=== PATIENT | male | born 1960 | race Two or more races ===

== ENCOUNTER 2019-05-27 22:38 | Emergency (ER) | payer OTHER, SELFPAY ==
[~2019-05-27] VITALS: Ht 175.3 cm; Wt 72.4 kg
[2019-05-27 22:47] VITALS: BP 126/77
[2019-05-28] MEDS ORDERED: OXYcodone/APAP 5/325MG TABLET PO ONE (00:30)
[2019-05-28] MEDS ORDERED: OXYcodone/APAP 5/325MG TABLET ONE (00:32)
== END 2019-05-28 00:52 | disposition home or self-care (01) ==
LOC: ED 05-28 00:01
DX: M79.661 Pain in right lower leg (principal); I10 Essential (primary) hypertension; E11.9 Type 2 diabetes mellitus without complications; E78.00 Pure hypercholesterolemia, unspecified; Z90.49 Acquired absence of other specified parts of digestive tract
CPT/HCPCS: 82962; 99283